=== PATIENT | female | born 1965 | race Two or more races ===

== ENCOUNTER 2022-08-10 12:02 | Emergency (ER) | payer OTHER ==
[~2022-08-10] VITALS: Ht 157.5 cm; Wt 96.6 kg
[~2022-08-10 12:02] MED LIST: KETO10TA2 PO; PERCOCET 5/321 UDTAB PO; PYRIDIUM100 M1 PO; TAMS0.4C; TAMS0.4C PO; ULTRACET PO; XARELTO15 MG PO
== END 2022-08-10 14:59 | disposition home or self-care (01) ==
LOC: ER 12:02
DX: K52.9 Noninfective gastroenteritis and colitis, unspecified (principal)

== ENCOUNTER 2023-12-04 09:21 | Emergency (ER) | payer OTHER ==
[~2023-12-04] VITALS: Ht 162.6 cm; Wt 95.3 kg
[2023-12-04] MEDS ORDERED: SYNTHROID75 MCG (10:17)
[2023-12-04] MEDS ORDERED: KETOROLAC TROMETHAMINE 60 MG VIAL IM STA (11:03)
[2023-12-04] MEDS ORDERED: ORPHENADRINE CITRATE 30 MG/ML AMPUL IM STA (11:06)
[2023-12-04] MEDS ORDERED: TRIAMCINOLONE ACETONIDE 40 MG/ML VIAL IJ STA (11:08)
== END 2023-12-04 12:21 | disposition home or self-care (01) ==
LOC: ER 09:22
DX: M77.12 Lateral epicondylitis, left elbow (principal); M62.838 Other muscle spasm